=== PATIENT | female | born 2000 | race American Indian/Alaskan Native ===

== ENCOUNTER 2021-01-05 09:17 | Emergency (ER) | payer SELFPAY ==
[2021-01-05 09:55] VITALS: BP 109/68
== END 2021-01-05 11:22 | disposition left against medical advice (07) ==
LOC: ED 09:17
DX: S30.861A Insect bite (nonvenomous) of abdominal wall, initial encounter (principal); Z53.21 Procedure and treatment not carried out due to patient leaving prior to being seen by health care provider; W57.XXXA Bitten or stung by nonvenomous insect and other nonvenomous arthropods, initial encounter; Y93.89 Activity, other specified; Y92.89 Other specified places as the place of occurrence of the external cause; Y99.8 Other external cause status

== ENCOUNTER 2021-05-18 13:48 | Emergency (ER) | payer SELFPAY ==
--- NOTE | 2021-05-18 14:19 | Emergency Department Report ---
ED ENT HPI - General Chief complaint: Medical Clearance Stated complaint: COLD/ITCHING THROAT Time Seen by Provider: 05/18/21 14:07 Source: patient Mode of arrival: Ambulatory Limitations: No Limitations - History of Present Illness Initial comments: 20-year-old female presents the emergency department chief complaint of scratchy sore throat and nasal congestion over the past few days. She was told by her boss that she needed to be checked out before returning to work. She denies any known past medical history, current medication use or known allergies to medications. She denies any associated fever, chills, night sweats, to, dizziness, or vision, chest pain with shortness of breath, weakness or any other associated symptoms. - Related Data Previous Rx's Medication Instructions Recorded Last Taken Type Fluticasone [Flonase] 1 spray NS QDAY #1 bottle 05/18/21 Unknown Rx Loratadine [Claritin] 10 mg PO QDAY #15 tablet 05/18/21 Unknown Rx Allergies Allergy/AdvReac Type Severity Reaction Status Date / Time No Known Allergies Allergy Verified 05/18/21 13:54 ED Dental HPI - General Chief complaint: Medical Clearance Stated complaint: COLD/ITCHING THROAT Time Seen by Provider: 05/18/21 14:07 Source: patient Mode of arrival: Ambulatory Limitations: No Limitations - Related Data Previous Rx's Medication Instructions Recorded Last Taken Type Fluticasone [Flonase] 1 spray NS QDAY #1 bottle 05/18/21 Unknown Rx Loratadine [Claritin] 10 mg PO QDAY #15 tablet 05/18/21 Unknown Rx Allergies Allergy/AdvReac Type Severity Reaction Status Date / Time No Known Allergies Allergy Verified 05/18/21 13:54 ED Review of Systems ROS: Stated complaint: COLD/ITCHING THROAT Other details as noted in HPI Comment: All other systems reviewed and negative Constitutional: denies: chills, fever Eyes: denies: eye pain, eye discharge, vision change ENT: throat pain, congestion. denies: ear pain Respiratory: denies: cough, shortness of breath, wheezing Cardiovascular: denies: chest pain, palpitations Endocrine: no symptoms reported Gastrointestinal: denies: abdominal pain, nausea, diarrhea Genitourinary: denies: urgency, dysuria, discharge Musculoskeletal: denies: back pain, joint swelling, arthralgia Skin: denies: rash, lesions Neurological: denies: headache, weakness, paresthesias Psychiatric: denies: anxiety, depression Hematological/Lymphatic: denies: easy bleeding, easy bruising ED Past Medical Hx - Past Medical History Previous Medical History?: Yes - Surgical History Past Surgical History?: No Additional Surgical History: knee surgery - Medications Home Medications: Home Medications Medication Instructions Recorded Confirmed Last Taken Type Fluticasone [Flonase] 1 spray NS QDAY #1 bottle 05/18/21 Unknown Rx Loratadine [Claritin] 10 mg PO QDAY #15 tablet 05/18/21 Unknown Rx ED Physical Exam - General Limitations: No Limitations General appearance: alert, in no apparent distress - Head Head exam: Present: atraumatic, normocephalic - Eye Eye exam: Present: normal appearance, PERRL, EOMI Pupils: Present: normal accommodation - ENT ENT exam: Present: normal exam, mucous membranes moist, other (Mild erythema of the posterior pharynx, no exudate, no peritonsillar bulging, retropharyngeal bulging or tongue elevation. Pale nasal turbinates) - Neck Neck exam: Present: normal inspection, full ROM. Absent: tenderness, meningismus - Respiratory Respiratory exam: Present: normal lung sounds bilaterally. Absent: respiratory distress, wheezes, rales, rhonchi, stridor - Cardiovascular Cardiovascular Exam: Present: regular rate, normal rhythm. Absent: systolic murmur, diastolic murmur, rubs, gallop - GI/Abdominal GI/Abdominal exam: Present: soft, normal bowel sounds. Absent: distended, tenderness, guarding, rebound, rigid - Extremities Exam Extremities exam: Present: normal inspection, full ROM, normal capillary refill. Absent: tenderness - Back Exam Back exam: Present: normal inspection, full ROM. Absent: tenderness, CVA tenderness (R), CVA tenderness (L) - Neurological Exam Neurological exam: Present: alert, oriented X3, normal gait - Psychiatric Psychiatric exam: Present: normal affect, normal mood - Skin Skin exam: Present: warm, dry, intact, normal color. Absent: rash ED Course Vital Signs 05/18/21 05/18/21 13:55 13:59 Temperature 97.9 F Pulse Rate 79 Respiratory 16 Rate Blood Pressure 112/62 [Right] O2 Sat by Pulse 98 Oximetry ED Medical Decision Making - Medical Decision Making Patient nontoxic in no acute distress. Well-appearing. Centor criteria was negative and I have a low suspicion for strep throat at this time. We will treat her with antihistamines and nasal corticosteroids recommended if she develops any symptoms of COVID-19 such as loss of taste or smell, diarrhea, fever, body aches that she should get a Covid test prior to return to work. At this time she did not initially have any symptoms of COVID-19 I think is safe to go back to work. She verbalized understand the diagnosis, treatment plan and follow-up instructions and all of her questions were answered. - Differential Diagnosis Allergic rhinitis, acute sinusitis, viral pharyngitis. Critical care attestation.: If time is entered above; I have spent that time in minutes in the direct care of this critically ill patient, excluding procedure time. ED Disposition Clinical Impression: Allergic rhinitis Qualifiers: Allergic rhinitis trigger: unspecified Allergic rhinitis seasonality: unspecified Qualified Code(s): J30.9 - Allergic rhinitis, unspecified Disposition: 01 HOME / SELF CARE / HOMELESS Is pt being admited?: No Condition: Stable Instructions: Allergic Rhinitis, Adult, [id number] Prescriptions: Loratadine [Claritin] 10 mg PO QDAY #15 tablet Fluticasone [Flonase] 1 spray NS QDAY #1 bottle Forms: Work/School Release Form(ED) Time of Disposition: 14:46
[2021-05-18 14:56] VITALS: BP 104/66
== END 2021-05-18 15:08 | disposition home or self-care (01) ==
LOC: ED 13:48
DX: J30.9 Allergic rhinitis, unspecified (principal)
CPT/HCPCS: 99281

== ENCOUNTER 2021-05-27 15:27 | Emergency (ER) | payer SELFPAY ==
[2021-05-27 16:18] LABS: Basophils # (Auto) 0.1 K/mm3 (0.0-0.1); Basophils % (Auto) 0.8 % (0.0-1.8); Eosinophils # (Auto) 0.1 K/mm3 (0.0-0.4); Eosinophils % (Auto) 1.2 % (0.0-4.3); Lymphocytes # (Auto) 2.7 K/mm3 (1.2-5.4); Lymphocytes % (Auto) 39.3 % (13.4-35.0); Mean Corpuscular HGB Conc 31 % (30-34); Monocytes # (Auto) 0.5 K/mm3 (0.0-0.8); Monocytes % (Auto) 6.7 % (0.0-7.3); Platelet Count 317 K/mm3 (140-440); Red Blood Count 5.52 M/mm3 (3.65-5.03)
[2021-05-27 16:38] LABS: Alanine Aminotransferase 10 units/L (7-56); Albumin 4.4 g/dL (3.9-5); BUN/Creatinine Ratio 13; Blood Urea Nitrogen 12 mg/dL (7-17); Calcium 9.8 mg/dL (8.4-10.2); Hemolysis Index 12
[2021-05-27 16:53] LABS: Hemoglobin 11.6 gm/dl (10.1-14.3)
[2021-05-27 16:54] LABS: Hematocrit 37.9 % (30.3-42.9); Mean Corpuscular Volume 69 fl (79-97)
--- NOTE | 2021-05-27 17:27 | Emergency Department Report ---
ED General Adult HPI - General Chief complaint: Dizziness Stated complaint: BLACK OUT/DIZZY Time Seen by Provider: 05/27/21 15:53 Source: patient Mode of arrival: Ambulatory Limitations: No Limitations - History of Present Illness Initial comments: Patient is a 20-year-old female presents emergency room complaints of dizziness for several days. She states that she has had nasal congestion and sinus pressure for over 10 days. Patient states that she was previously seen in the emergency room and given prescription for Flonase and Claritin. States that she is also been having headaches. She denies any syncope, chest pain, shortness of breath, palpitations, leg swelling, calf pain, pleuritic pain, fever, vomiting, diarrhea, cough. Past medical history of anemia. States that she was not sure if her dizziness was due to her anemia. No allergies to medications. She states that her her menstrual cycle is also a few days late. - Related Data Previous Rx's Medication Instructions Recorded Last Taken Type Fluticasone [Flonase] 1 spray NS QDAY #1 bottle 05/18/21 Unknown Rx Loratadine [Claritin] 10 mg PO QDAY #15 tablet 05/18/21 Unknown Rx Amoxicillin/Potassium Clav 1 each PO BID 10 Days #20 tablet 05/27/21 Unknown Rx [Augmentin 875-125 Tablet] Butalb/Acetaminophen/Caffeine 1 cap PO Q8HR PRN #10 cap 05/27/21 Unknown Rx [Fioricet 50-300-40 mg CAP] Meclizine [Antivert] 25 mg PO TID PRN #20 tablet 05/27/21 Unknown Rx Allergies Allergy/AdvReac Type Severity Reaction Status Date / Time No Known Allergies Allergy Verified 05/18/21 13:54 ED Review of Systems ROS: Stated complaint: BLACK OUT/DIZZY Other details as noted in HPI Comment: All other systems reviewed and negative ED Past Medical Hx - Past Medical History Previous Medical History?: Yes Additional medical history: anemia - Surgical History Past Surgical History?: Yes Additional Surgical History: knee surgery - Medications Home Medications: Home Medications Medication Instructions Recorded Confirmed Last Taken Type Fluticasone [Flonase] 1 spray NS QDAY #1 bottle 05/18/21 Unknown Rx Loratadine [Claritin] 10 mg PO QDAY #15 tablet 05/18/21 Unknown Rx Amoxicillin/Potassium Clav 1 each PO BID 10 Days #20 tablet 05/27/21 Unknown Rx [Augmentin 875-125 Tablet] Butalb/Acetaminophen/Caffeine 1 cap PO Q8HR PRN #10 cap 05/27/21 Unknown Rx [Fioricet 50-300-40 mg CAP] Meclizine [Antivert] 25 mg PO TID PRN #20 tablet 05/27/21 Unknown Rx ED Physical Exam - General Limitations: No Limitations General appearance: alert, in no apparent distress - Head Head exam: Present: atraumatic, normocephalic - Eye Eye exam: Present: normal appearance, PERRL, EOMI. Absent: conjunctival injection, periorbital swelling, periorbital tenderness - ENT ENT exam: Present: mucous membranes moist - Respiratory Respiratory exam: Present: normal lung sounds bilaterally. Absent: respiratory distress, wheezes, rales, rhonchi, stridor, chest wall tenderness, accessory muscle use, decreased breath sounds, prolonged expiratory - Cardiovascular Cardiovascular Exam: Present: regular rate, normal rhythm, normal heart sounds. Absent: systolic murmur, diastolic murmur, rubs, gallop - Neurological Exam Neurological exam: Present: alert, oriented X3 - Psychiatric Psychiatric exam: Present: normal affect, normal mood - Skin Skin exam: Present: warm, dry, intact ED Course Vital Signs 05/27/21 05/27/21 15:43 17:30 Temperature 98 F Pulse Rate 61 62 Respiratory 16 15 Rate Blood Pressure 100/60 Blood Pressure 99/56 [Left] O2 Sat by Pulse 97 98 Oximetry ED Medical Decision Making - Lab Data Result diagrams: 05/27/21 16:04 05/27/21 16:04 Lab Results 05/27/21 05/27/21 05/27/21 Range/Units 16:04 16:04 16:04 WBC 6.9 (4.5-11.0) K/mm3 RBC 5.52 H (3.65-5.03) M/mm3 Hgb 11.6 (10.1-14.3) gm/dl Hct 37.9 (30.3-42.9) % MCV 69 L (79-97) fl MCH 21 L (28-32) pg MCHC 31 (30-34) % RDW 16.0 H (13.2-15.2) % Plt Count 317 (140-440) K/mm3 Lymph % (Auto) 39.3 H (13.4-35.0) % [place] % (Auto) 6.7 (0.0-7.3) % Eos % (Auto) 1.2 (0.0-4.3) % Baso % (Auto) 0.8 (0.0-1.8) % Lymph # (Auto) 2.7 (1.2-5.4) K/mm3 [place] # (Auto) 0.5 (0.0-0.8) K/mm3 Eos # (Auto) 0.1 (0.0-0.4) K/mm3 Baso # (Auto) 0.1 (0.0-0.1) K/mm3 Seg Neutrophils % 52.0 (40.0-70.0) % Seg Neutrophils # 3.6 (1.8-7.7) K/mm3 Sodium 141 (137-145) mmol/L Potassium 4.5 (3.6-5.0) mmol/L Chloride 105.0 (98-107) mmol/L Carbon Dioxide 25 (22-30) mmol/L Anion Gap 16 mmol/L BUN 12 (7-17) mg/dL Creatinine 0.9 (0.6-1.2) mg/dL Estimated GFR > 60 ml/min BUN/Creatinine Ratio 13 % Glucose 84 (65-100) mg/dL Calcium 9.8 (8.4-10.2) mg/dL Total Bilirubin 0.60 (0.1-1.2) mg/dL AST 22 (5-40) units/L ALT 10 (7-56) units/L Alkaline Phosphatase 54 (35-129) units/L Total Protein 7.6 (6.3-8.2) g/dL Albumin 4.4 (3.9-5) g/dL Albumin/Globulin Ratio 1.4 % HCG, Qual Negative (Negative) Vital Signs 05/27/21 05/27/21 15:43 17:30 Temperature 98 F Pulse Rate 61 62 Respiratory 16 15 Rate Blood Pressure 100/60 Blood Pressure 99/56 [Left] O2 Sat by Pulse 97 98 Oximetry - Medical Decision Making Patient is a 20-year-old female presents emergency room complaints of dizziness for several days. She states that she has had nasal congestion and sinus pressure for over 10 days. Patient states that she was previously seen in the emergency room and given prescription for Flonase and Claritin. States that she is also been having headaches. She denies any syncope, chest pain, shortness of breath, palpitations, leg swelling, calf pain, pleuritic pain, fever, vomiting, diarrhea, cough. Past medical history of anemia. States that she was not sure if her dizziness was due to her anemia. No allergies to medications. She states that her her menstrual cycle is also a few days late. Vitals are stable. No focal neuro deficits on exam. She denies any sensation of room spinning. She states it feels more like lightheadedness. Labs are normal. H&H is normal. hCG is negative. Symptoms likely consistent with sinusitis. Patient given prescription for medication. Advised patient Please take medication as prescribed. Follow-up with your primary care doctor. Return to emergency room for any new or worsening symptoms. Critical care attestation.: If time is entered above; I have spent that time in minutes in the direct care of this critically ill patient, excluding procedure time. ED Disposition Clinical Impression: Dizziness Sinusitis Qualifiers: Sinusitis location: unspecified location Chronicity: acute Recurrence: non- recurrent Qualified Code(s): J01.90 - Acute sinusitis, unspecified Disposition: 01 HOME / SELF CARE / HOMELESS Is pt being admited?: No Does the pt Need Aspirin: No Condition: Stable Instructions: Sinusitis, Adult, [id number], Dizziness, [id number] Additional Instructions: Please take medication as prescribed. Follow-up with your primary care doctor. Return to emergency room for any new or worsening symptoms. Prescriptions: Meclizine [Antivert] 25 mg PO TID PRN #20 tablet PRN Reason: Vertigo Amoxicillin/Potassium Clav [Augmentin 875-125 Tablet] 1 each PO BID 10 Days #20 tablet Butalb/Acetaminophen/Caffeine [Fioricet 50-300-40 mg CAP] 1 cap PO Q8HR PRN #10 cap PRN Reason: headache Referrals: JOANA CABEZAS MD [Staff Physician] - 2-3 Days [facility] [Provider Group] - 2-3 Days Forms: Work/School Release Form(ED) Time of Disposition: 17:29 Print Language: MALDIVIAN
[2021-05-27 17:32] VITALS: BP 100/60
== END 2021-05-27 17:53 | disposition home or self-care (01) ==
LOC: ED 15:27
DX: R42 Dizziness and giddiness (principal); J01.90 Acute sinusitis, unspecified
CPT/HCPCS: 36415; 80053; 84703; 85025; 99283

== ENCOUNTER 2021-07-09 19:53 | Emergency (ER) | payer SELFPAY ==
[2021-07-09 20:00] VITALS: BP 110/75
--- NOTE | 2021-07-09 23:26 | Emergency Department Report ---
ED General Adult HPI - General Chief complaint: Sore Throat Stated complaint: SORE THROAT Time Seen by Provider: 07/09/21 21:21 Source: patient Mode of arrival: Ambulatory Limitations: No Limitations - History of Present Illness Initial comments: 21-year-old female is emerged from complaining of a 4-day history of gross progressively worsening sore throat associated with a burning sensation and a white coating/rash to her tongue and back of the throat region she reports no known history of any immunocompromising conditions, no recent antibiotic use or no steroids. Reports no hemoptysis no hematemesis hematochezia, no fever, chills, sweats. -: Gradual Quality: dull Consistency: constant Improves with: none Worsens with: none Associated Symptoms: denies other symptoms Treatments Prior to Arrival: none - Related Data Previous Rx's Medication Instructions Recorded Last Taken Type Fluticasone [Flonase] 1 spray NS QDAY #1 bottle 05/18/21 Unknown Rx Loratadine [Claritin] 10 mg PO QDAY #15 tablet 05/18/21 Unknown Rx Amoxicillin/Potassium Clav 1 each PO BID 10 Days #20 tablet 05/27/21 Unknown Rx [Augmentin 875-125 Tablet] Butalb/Acetaminophen/Caffeine 1 cap PO Q8HR PRN #10 cap 05/27/21 Unknown Rx [Fioricet 50-300-40 mg CAP] Meclizine [Antivert] 25 mg PO TID PRN #20 tablet 05/27/21 Unknown Rx Fluconazole [Diflucan TAB] 100 mg PO QDAY #15 tablet 07/09/21 Unknown Rx Nystas/Diphen/Xyl Visc/Mylanta 30 ml MM Q4H PRN #300 ml 07/09/21 Unknown Rx [Magic Mouthwash] Allergies Allergy/AdvReac Type Severity Reaction Status Date / Time No Known Allergies Allergy Verified 05/18/21 13:54 ED Review of Systems ROS: Stated complaint: SORE THROAT Other details as noted in HPI Comment: All other systems reviewed and negative ED Past Medical Hx - Past Medical History Previous Medical History?: Yes Additional medical history: anemia - Surgical History Past Surgical History?: Yes Additional Surgical History: knee surgery - Social History Smoking Status: Never Smoker Substance Use Type: None - Medications Home Medications: Home Medications Medication Instructions Recorded Confirmed Last Taken Type Fluticasone [Flonase] 1 spray NS QDAY #1 bottle 05/18/21 Unknown Rx Loratadine [Claritin] 10 mg PO QDAY #15 tablet 05/18/21 Unknown Rx Amoxicillin/Potassium Clav 1 each PO BID 10 Days #20 tablet 05/27/21 Unknown Rx [Augmentin 875-125 Tablet] Butalb/Acetaminophen/Caffeine 1 cap PO Q8HR PRN #10 cap 05/27/21 Unknown Rx [Fioricet 50-300-40 mg CAP] Meclizine [Antivert] 25 mg PO TID PRN #20 tablet 05/27/21 Unknown Rx Fluconazole [Diflucan TAB] 100 mg PO QDAY #15 tablet 07/09/21 Unknown Rx Nystas/Diphen/Xyl Visc/Mylanta 30 ml MM Q4H PRN #300 ml 07/09/21 Unknown Rx [Magic Mouthwash] ED Physical Exam - General Limitations: No Limitations General appearance: alert, in no apparent distress - Head Head exam: Present: atraumatic, normocephalic - Eye Eye exam: Present: normal appearance, PERRL, EOMI - ENT ENT exam: Present: mucous membranes moist, normal external ear exam, other (Posterior pharynx red with thrush to the posterior pharynx a region in the posterior aspect of the tongue airway patent uvula midline no drooling) - Neck Neck exam: Present: normal inspection, full ROM. Absent: tenderness, lymphadenopathy - Respiratory Respiratory exam: Present: normal lung sounds bilaterally. Absent: respiratory distress, rales, rhonchi, accessory muscle use - Cardiovascular Cardiovascular Exam: Present: regular rate, normal rhythm. Absent: systolic murmur, diastolic murmur, rubs, gallop - GI/Abdominal GI/Abdominal exam: Present: soft, normal bowel sounds. Absent: tenderness, guarding - Extremities Exam Extremities exam: Present: normal inspection - Back Exam Back exam: Present: normal inspection - Neurological Exam Neurological exam: Present: alert, oriented X3 - Psychiatric Psychiatric exam: Present: normal affect, normal mood - Skin Skin exam: Present: warm, dry, intact, normal color. Absent: rash ED Course Vital Signs 07/09/21 19:57 Temperature 98.0 F Pulse Rate 80 Respiratory 18 Rate Blood Pressure 110/75 O2 Sat by Pulse 97 Oximetry Critical care attestation.: If time is entered above; I have spent that time in minutes in the direct care of this critically ill patient, excluding procedure time. ED Disposition Clinical Impression: Pharyngitis, Thrush Disposition: HOME / SELF CARE / HOMELESS Is pt being admited?: No Does the pt Need Aspirin: No Condition: Stable Instructions: Strep Throat, Adult, Oral Thrush, Adult, Sore Throat Prescriptions: Fluconazole [Diflucan TAB] 100 mg PO QDAY #15 tablet Nystas/Diphen/Xyl Visc/Mylanta [Magic Mouthwash] 30 ml MM Q4H PRN #300 ml PRN Reason: oral pain and rash Referrals: MARIAH [facility]DOMOREPLACED BY [facility] MD BRITNI [Primary Care Provider] - 3-5 Days
== END 2021-07-09 23:54 | disposition home or self-care (01) ==
LOC: ED 19:53
DX: J02.9 Acute pharyngitis, unspecified (principal); B37.9 Candidiasis, unspecified; Z98.890 Other specified postprocedural states; Z79.899 Other long term (current) drug therapy
CPT/HCPCS: 99282